=== PATIENT | male | born 1955 | race Caucasian/White ===

== ENCOUNTER 2020-12-19 11:23 | Emergency (ER) | payer BC, SELFPAY ==
[2020-12-19] VITALS (27 sets, daily range): BP systolic 132–165; BP diastolic 72–88; PULSE 86–148; RESP 13–33; TEMP 36.6; O2SAT 82–99
--- NOTE | ~2020-12-19 | XR_ITS ---
EXAMINATION: XR chest 2V DATE: 12/19/2020 12:03 INDICATION: Seizure TECHNIQUE: frontal and lateral views of the chest were obtained. COMPARISON: Chest radiograph dated 12/17/2014 FINDINGS: Unchanged small calcified nodule in the right midlung zone consistent with old granulomatous disease. No other airspace opacities, pulmonary edema, pleural effusion or pneumothorax. The cardiomediastina l silhouette is normal. Mild thoracic levocurvature with moderate spondylosis. Chronic minimal to mil d anterior wedging of a fusiform lower thoracic vertebral bodies, likely T9-T11. IMPRESSION: 1. No acute cardiopulmonary disease. Reviewed, dictated and finalized at location A.
--- NOTE | ~2020-12-19 | CT_ITS ---
EXAMINATION: CT brain wo con DATE: 12/19/2020 12:14 INDICATION: Seizure and confusion TECHNIQUE: Computed tomography (CT) of the head was performed without intravenous contrast. Sagittal and coronal reconstructions were performed. The mA was adjusted according to patient size. Iterative reconstruction technique was employed. The dose-length product was 605.33 mGy-cm. COMPARISON: None FINDINGS: There is approximately 12 x 4 mm region of increased attenuation at the periphery of what appears to be an intra-axial mass suspicious for malignancy in the right frontal lobe with small amount of surro unding vasogenic edema. There is local mass effect with effacement of the adjacent sulci but without midline shift, asymmetry to the normal size ventricles or effacement of the basal cisterns. No acute infarction or abnormal extra axial fluid collection. The orbits, paranasal sinuses and mastoid air ce lls are normal. IMPRESSION: 1. Small relatively linear region of increased attenuation along side but appears be a large extra-ax ial mass in the right frontal lobe. The former is suspicious for either intraparenchymal or subarachn oid hemorrhage along a vessel although differential includes calcification. With the patient still on the CT table the emergency department was notified of this finding and recommendation to obtain olga tional postcontrast imaging for further assessment of the mass. See separate contrast enhanced CT rep ort for additional detail. Reviewed, dictated and finalized at location A. IMPRESSION: 1. Small relatively linear region of increased attenuation along side but appea rs be a large extra-axial mass in the right frontal lobe. The former is suspici ous for either intraparenchymal or subarachnoid hemorrhage along a vessel altho ugh differential includes calcification. With the patient still on the CT table the emergency department was notified of this finding and recommendation to ob tain additional postcontrast imaging for further assessment of the mass. See [facility] contrast enhanced CT report for additional detail.
--- NOTE | ~2020-12-19 | CT_ITS ---
EXAMINATION: CT brain w con DATE: 12/19/2020 12:37 INDICATION: Seizure and right frontal lobe mass lesion on noncontrast imaging TECHNIQUE: Computed tomography (CT) of the head was performed with 100 mL Omnipaque-350 intravenous c ontrast. Sagittal and coronal reconstructions were performed. The mA was adjusted according to patien t size. Iterative reconstruction technique was employed. The dose-length product was 605.33 mGy-cm. COMPARISON: head CT dated 12/19/20 at 12:07 PM FINDINGS: There is avid enhancement throughout a type 5.3 x 3.4 x 3.6 cm intra-axial mass within the right fron suraj lobe with small amount of surrounding vasogenic edema. Again seen are a few foci of higher attenu ation along a linear pattern at the periphery of the mass which could represent calcification or intr aparenchymal or subarachnoid hemorrhage. No other abnormally enhancing brain lesions identified. IMPRESSION: 1. 5.3 x 3.4 x 3.6 cm right frontal lobe intra-axial mass which could represent either primary brain cancer or metastatic disease. Neurosurgical consultation is indicated particularly given the presence of possible small amount of hemorrhage along the margin of the mass as detailed on prior noncontrast imaging. Discussed with Dr. Molina at 12:35 PM Reviewed, dictated and finalized at location A. IMPRESSION: 1. 5.3 x 3.4 x 3.6 cm right frontal lobe intra-axial mass which could represent either primary brain cancer or metastatic disease. Neurosurgical consultation is indicated particularly given the presence of possible small amount of hemorr isaiah along the margin of the mass as detailed on prior noncontrast imaging. Dis cussed with Dr. Molina at 12:35 PM
--- NOTE | 2020-12-19 11:34 | ECG_ITS ---
Measurements Intervals [place] Rate: 146 P: 224 [place]: 77 QRS: 51 QRSD: 90 T: 55 QT: 312 QTc: 487 Interpretive Statements SINUS TACHYCARDIA BASELINE ARTIFACT- II, III, AVR, AVF, V3-V6 ABNORMAL ECG Electronically Signed On 12-19-2020 17:15:28 CDT by Jose Elias Herrmann D.O.
[2020-12-19] MEDS: SODIUM CHLORIDE 0.9% IV 1,000 ML 999 ML IV CONT (12:03)
[2020-12-19 12:40] LABS: Estimated CRCL calculation 67 ml/min; Estimated Glomerular Filt Rate > 60
[2020-12-19 13:00] LABS: Basophils Percent Auto 0.4 % (0.2-1.2); Eosinophils Absolute Auto 0.3 K/mm3 (0-0.3); Eosinophils Percent Auto 2.8 % (0-4.4); Hematocrit 53.5 % (42.0-52.0); Hemoglobin 17.4 g/dL (14.0-18.0); Immature Granulocyte Absolute 0.05 K/mm3 (0.00-0.031); Immature Granulocyte Percent A 0.6 % (0-0.5); Lymphocytes Absolute Auto 3.49 K/mm3 (0.9-3.2); Mean Corpuscular HGB Conc 32.5 g/dl (32-36); Mean Corpuscular Hemoglobin 31.6 pg (26-34); Mean Corpuscular Volume 97.3 fl (80-100); Mean Platelet Volume 11.1 fl (7.4-10.4); Monocytes Absolute Auto 0.8 K/mm3 (0.1-0.6); Monocytes Percent Auto 8.4 % (2.6-8.5); Neutrophils Absolute Auto 4.4 K/mm3 (1.3-6.7); Neutrophils Percent Auto 48.8 % (45.5-73.1); Platelet Count Result 205 k/mm3 (150-375); Red Cell Distribution Width 12.8 % (11.5-14.5)
[2020-12-19] MEDS: levETIRAcetam 1000MG/NACL100ML 1,000 MG/100 ML BAG 400 MG (13:01)
[2020-12-19 13:05] LABS: Ethanol < 10 mg/dL (<10)
[2020-12-19 13:15] LABS: Alanine Aminotransferase 37 U/L (4-50); Albumin Level 5.2 g/dL (3.5-5.1); Alkaline Phosphatase 62 U/L (38-126); Anion Gap 27 mmol/L (8-16); Aspartate Amino Transferase 36 U/L (17-59); Bilirubin,Total 1.3 mg/dL (0.2-1.3); Blood Urea Nitrogen 17 mg/dL (9-20); Calcium 9.7 mg/dL (8.4-10.2); Carbon Dioxide 10 mmol/L (22-30); Chloride 103 mmol/L (98-107); Estimated CRCL calculation 62 ml/min; Estimated Glomerular Filt Rate > 60; Glucose 184 mg/dL (65-110); Potassium 3.9 mmol/L (3.4-5.0); Sodium 140 mmol/L (137-145)
[2020-12-19 13:16] LABS: Add Urine Microscopic? YES; Appearance Urine Clear (Clear); Bilirubin Urine Negative (Negative); Blood Urine 1+ (Negative); Color Urine Yellow (Yellow); Glucose Urine UA Negative (Negative); Ketones Urine Trace mg/dL (Negative); Leukocyte Esterase Ur Negative LEU/UL (Negative); Mucus Urine Rare /lpf; Nitrate Urine Negative (Negative); Protein Urine 2+ mg/dL (Negative); RBC Urine 0-2 /hpf (0-2); Specific Grav Ur 1.024 (1.001-1.035); Squamous Epithelial Cell Urine Rare /hpf (Few); Urobilinogen Urine Negative mg/dL (<2.0); WBC Urine 0-3 /hpf
[2020-12-19 13:26] LABS: Amphetamine Screen Urine Negative (Negative); Barbiturate Screen Urine Negative (Negative); Benzodiazepines Screen Urine Negative (Negative); Cannabinoid Screen Urine Negative (Negative); Cocaine Screen Urine Negative (Negative); Methadone Screen Urine Negative (Negative); Opiate Screen Urine Negative (Negative); Phencyclidine Screen Urine Negative (Negative)
--- NOTE | 2020-12-19 13:57 | ED.SEIZURE ---
HPI - Seizure General Chief Complaint: Seizure Stated Complaint: seizure Time Seen by Provider: 12/19/20 11:27 History of Present Illness HPI Narrative: Patient is a 65-year-old male who presents ER status post seizure. 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 Then moved to the right side as well. 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 Patient was postictal upon arrival of EMS. Upon arrival at the ER patient is alert and oriented x3. No tongue biting or loss of bladder. No previous history of seizures. Patient reports having some whiskey last night and he does drink alcohol regularly. Denies any history of alcohol withdrawal. Denies any numbness or tingling to an arm or leg. No weakness or slurred speech. No history of stroke. He is on any blood thinners. Related Data Allergies Allergy/AdvReac Type Severity Reaction Status Date / Time Penicillins Allergy Unknown Hives / Verified 12/19/20 11:29 Red Face Review of Systems Review of Systems: All systems reviewed & are unremarkable except as noted in HPI and below Constitutional: Constitutional: Denies chills, Denies fever(s) and Denies weakness ENT: Denies nasal congestion and Denies sore throat Cardiovascular: Cardiovascular: Denies chest pain, Denies rapid heart rate and Denies radiating jaw, neck or arm pain Respiratory: Respiratory: Denies cough and Denies dyspnea Neurologic: Denies headache(s), Denies focal weakness and Denies numbness Comments: +seizure PMFSH Past Medical History Medical History (Updated 12/19/20 @ 18:42 by Riky Molina MD) Healthy adult male Surgical History Surgical History (Updated 12/19/20 @ 13:59 by Riky Molina MD) H/O knee surgery Social History Social History (Updated 12/19/20 @ 14:00 by Riky Molina MD) Tobacco type: cigars Additional smoking assessment comments: [place] cigars on the golf [place] occasion. Alcohol intake: current Substance use: never Exam Narrative: GENERAL: Well-appearing, well-nourished, and in no acute distress. HEAD: Normocephalic, atraumatic. EYES: PERRL and EOMI. ENT: Mucous membranes moist. CHEST: Clear to auscultation. No respiratory distress. HEART: Regular rate and rhythm. Normal peripheral pulses. ABDOMEN: Soft, nontender, nondistended. EXTREMITIES: Normal range of motion. No edema. SKIN: Warm, dry, no rash. NEURO: No focal deficits. No upper or lower extremity drift. Normal fckk-qk-wtpo testing. No facial droop or asymmetry. Clear speech. Alert and oriented x3. Course Course Emergency Course: Patient resting comfortably and informed results. He has been given Keppra 1 g IV for seizure prophylaxis and will be placed on scheduled Keppra. I discussed the case with Dr. Alfaro the neurosurgery fellow who is on-call. He is excepted the patient for admission to the neuro stepdown unit. The accepting physician will be Dr. Mcallister. Vital Signs Vital signs: Vital Signs Pulse Rate 148 H 12/19/20 11:21 Respiratory Rate 30 H 12/19/20 11:21 Blood Pressure 165/82 H 12/19/20 11:21 Pulse Oximetry 94 12/19/20 11:21 Temperature 97.8 F 12/19/20 18:58 Pulse Rate 99 12/19/20 18:58 Respiratory Rate 18 12/19/20 18:58 Blood Pressure 136/72 12/19/20 18:58 Pulse Oximetry 98 12/19/20 18:58 MDM - Seizure Lab Data Result diagrams: 12/19/20 11:30 12/19/20 12:29 Labs: Lab Results 12/19/20 12/19/20 12/19/20 Range/Units 11:30 11:30 11:30 WBC 9.0 (4.5-10.0) K/mm3 RBC 5.50 (4.6-6.20) M/mm3 Hgb 17.4 (14.0-18.0) g/dL Hct 53.5 H (42.0-52.0) % MCV 97.3 (80-100) fl MCH 31.6 (26-34) pg MCHC 32.5 (32-36) g/dl RDW 12.8 (11.5-14.5) % Plt Count 205 (150-375) k/mm3 MPV 11.1 H (7.4-10.4) fl Immature Gran % (Auto) 0.6 H (0-0.5) % Neut % (Auto) 48.8 (45.5-73.1) % Lymph % (Auto) 39.0
--- NOTE | 2020-12-19 16:40 | PC.NURSE ---
pt reports that bystanders preformed CPR on scene. pt noted to have bruising and abrasions to right side of back.
--- NOTE | 2020-12-19 18:55 | PC.NURSE ---
[facility] accepted transfer to [facility] 1929 trip # [id number]
== END 2020-12-19 19:25 | disposition short-term general hospital (02) ==
PROVIDERS: Emergency Provider Emergency Medicine; PCP Internal Medicine
DX: R56.9 Unspecified convulsions (principal); I62.9 Nontraumatic intracranial hemorrhage, unspecified; G93.89 Other specified disorders of brain; F17.290 Nicotine dependence, other tobacco product, uncomplicated; R00.0 Tachycardia, unspecified
CPT/HCPCS: 70450; 70460; 70470; 71046; 80053; 80307; 81001; 85025; 93005; 96361; 96374; 99291; J1953; J7030; Q9967

== ENCOUNTER → 2021-11-01 14:05 | Outpatient (CLI) | payer BC, SELFPAY ==
--- NOTE | ~2021-11-01 | CT_ITS ---
EXAMINATION: CT femur RT wo con DATE: 11/01/2021 14:25 INDICATION: Abnormality of the femur TECHNIQUE: High resolution computed tomography (CT) of the right femur from the hip through the knee was performed without intravenous contrast. Additional sagittal and coronal reconstructions were perf ormed. Automated exposure control and iterative reconstruction technique were employed. The dose-carmen th product was 479.17 mGy-cm. COMPARISON: None FINDINGS: Bone alignment is normal. No fracture. Mild streak artifact at the distal femur resulting from a left sided total knee arthroplasty partially visualized on the informal waiter/waitress topogram. There is a 1.7 x 1.3 x 0.9 cm lytic lesion is centrally positioned at the lateral aspect of the distal metaphyseal region of th e right femur. The lesion contains a a 9 x 7 x 9 mm sclerotic focus with ring and arc-like pattern co nsistent with chondroid matrix in an enchondroma. No evident scalloping of the cortex along side the lytic lesion or evident periosteal reaction. Small sclerotic bone island at the right lesser trochant er. No other bone lesions identified. Marginal osteophytes in all 3 compartments of the right knee co nsistent with at least mild osteoarthritis although the degree of joint space narrowing can be undere stimated on nonweightbearing imaging. Small enthesophytes along the proximal pole of the patella. Mil d right hip osteoarthritis with posterior predominant nonuniform joint space narrowing. Soft tissues are unremarkable. No right hip or knee joint effusion. IMPRESSION: 1. 1.7 x 1.3 x 0.9 cm enchondroma the distal right femoral metaphysis. Reviewed, dictated and finalized at location A.
== END ==
PROVIDERS: PCP Internal Medicine; Visit Provider Internal Medicine
DX: Q74.2 Other congenital malformations of lower limb(s), including pelvic girdle (principal)
CPT/HCPCS: 73700

== ENCOUNTER 2025-01-18 20:15 | Emergency (ER) | payer MEDICARE, SELFPAY ==
--- OUTSIDE RECORDS SUMMARY | 2021-03-22 07:00 | XMS_ITS | Continuity of Care Document ---
Author Organization [facility] Address [address] [place] [address] [address] [place] [address] Phone Care Team Providers Care Clinical Social Worker Name Role Phone Dawn PT, Chari Unavailable Unavailabl e Procedures Procedure Date Therapeutic Activities Hot or Cold Pack Therapeutic Exercise Therapeutic Activities Therapeutic Exercise Hot or Cold Pack Hot or Cold Pack Therapeutic Activities Therapeutic Exercise Hot or Cold Pack Therapeutic Exercise Therapeutic Activities Therapeutic Activities Neuromuscular Re-Ed Therapeutic Exercise PT Evaluation Moderate Complexity Therapeutic Activities Therapeutic Exercise Neuromuscular Re-Ed Manual Therapy Therapeutic Exercise Neuromuscular Re-Ed Manual Therapy Therapeutic Exercise Neuromuscular Re-Ed Manual Therapy Therapeutic Exercise Neuromuscular Re-Ed Manual Therapy Therapeutic Exercise Neuromuscular Re-Ed Manual Therapy Therapeutic Exercise Neuromuscular Re-Ed Manual Therapy PT Evaluation Low Complexity Therapeutic Exercise Manual Therapy Therapeutic Exercise Therapeutic Activities Manual Therapy Therapeutic Exercise Therapeutic Activities Manual Therapy Electrical Stimulation Therapeutic Exercise Therapeutic Activities Manual Therapy Electrical Stimulation Therapeutic Exercise Therapeutic Activities Manual Therapy Electrical Stimulation Therapeutic Exercise Therapeutic Activities Manual Therapy Electrical Stimulation Therapeutic Exercise Therapeutic Activities Manual Therapy Electrical Stimulation Progress Note Therapeutic Exercise Therapeutic Activities Manual Therapy Electrical Stimulation Therapeutic Exercise Therapeutic Activities Manual Therapy Electrical Stimulation Therapeutic Exercise Therapeutic Activities Manual Therapy Electrical Stimulation Therapeutic Exercise Therapeutic Activities Manual Therapy Electrical Stimulation Therapeutic Exercise Therapeutic Activities Manual Therapy Electrical Stimulation Therapeutic Exercise Therapeutic Activities Manual Therapy Electrical Stimulation Therapeutic Exercise Therapeutic Activities Manual Therapy Electrical Stimulation PT Evaluation Moderate Complexity Therapeutic Exercise Therapeutic Activities Advance Directives Directive Yes / No Effective Date File Name No Information Encounters Encounter Description Practice Location Reason(s) For Visit Diagnoses Date Provider Providers Copied on Encounter [facility], [address] [facility] [address], [place], [place], [id number], [place] tel:[phone] [place] No Information 1 Niederhoffer Chari. . Referring Provider: Carlos Prater, [address] [place], [address]. tel:[phone] [place] [address], [id number], [place] tel:[phone] [place] No Information Dec-0 1 Niederhoffer Chari. . Referring Provider: Carlos Prater, [address] [place], [address]. tel:[phone] [place], [place] [address] [address], [id number], [place] tel:[phone] [place] No Information Dec-0 1 Niederhoffer Chari. . Referring Provider: Carlos Prater, [address] [place], [address]. tel:[phone] [place] [address], [id number], [place] tel:[phone] [place] No Information 1 Niederhoffer Chari. . Referring Provider: Carlos Prater, [address] [place], [address]. tel:[phone] [place] [address], [id number], [place] tel:[phone] [place] No Information 1 Niederhoffer Chari. . Referring Provider: Carlos Prater, [address] [place], [address]. tel:[phone] [facility] [address], [id number], [place] tel:[phone] [place] No Information 1 Niederhoffer Chari. . Referring Provider: Carlos Prater, [address] [place], [address]. tel:[phone] [facility], [id number], [place] tel:[phone] [place] Pain in left shoulderPrima ry osteoarthriti s, left shoulder May-2 9-201 8 Bill Guzman. [address] [facility], [address], [place], [facility], . tel:[phone] Referring Provider: [place], [address]. tel:[phone] [place], [place] [id number] [facility] [address] [place] [address], [id number], [place] tel:[phone] [place] Pain in left shoulderPrima ry osteoarthriti s, left shoulder May-2 1-201 8 [place], [place], [place]. Referring Provider: [place], [address]. tel:[phone] [place] [address] [address], [id number], [place] tel:[phone] [place] Pain in left shoulderPrima ry osteoarthriti s, left shoulder May-1 5-201 8 [place], [place]. Referring Provider: [place], [address]. tel:[phone] [facility], [id number], [place] tel:[phone] [place] Pain in left shoulderPrima ry osteoarthriti s, left shoulder May-0 9-201 8 Basilio [place]. , [place], [place]. Referring Provider: [place], [address]. tel:[phone] [facility], [id number], [place] tel:[phone] [place] Pain in left shoulderPrima ry osteoarthriti s, left shoulder May-0 7-201 8 Bas[place]. , [place], [place]. Referring Provider: [place], [address]. tel:[phone] [facility], [place], [place], [id number], [place] tel:[phone] [place] Pain in left shoulderPrima ry osteoarthriti s, left shoulder May-0 8 [place] , [place], [place]. Referring Provider: Carlos Prater, [address] [place], [address]. tel:[phone] [facility], [place], [place], [id number], [place] tel:[phone] [place] Pain in left shoulderPrima ry osteoarthriti s, left shoulder Jul-2 8 [place] , [place], [place]. Referring Provider: Carlos Prater, [address] [place], [address]. tel:[phone] [facility], [place], [place], [id number], [place] tel:[phone] [place] No Information [address] [place] , [place], [place]. [facility], [place], [place], [id number], [place] tel:[phone] [place] No Information [address] [place] , [place], [place]. [facility], [place], [place], [id number], [place] tel:[phone] [place] No Information [address] [place] , [place], [place]. [facility], [place], [place], [id number], [place] tel:[phone] [place] No Information [address] [place] , [place], [place]. [facility], [place], [place], [id number], [place] tel:[phone] [place] No Information [address] [place] , [place], [place]. [facility], [address], [place], [place], [id number], [place] tel:[phone] [place] No Information - 7 [place] , [place], [place]. [facility], [address], [place], [place], [id number], [place] tel:[phone] [place] No Information - [address] [place] , [place], [place]. [facility], [address], [place], [place], [id number], [place] tel:[phone] [place] No Information - [address] [place] , [place], [place]. [facility], [address], [place], [place], [id number], [place] tel:[phone] [place] No Information 0 [address] [place] , [place]. [facility], [address], [place], [place], [id number], [place] tel:[phone] [place] No Information 0 - 7 [place] , [place], [place]. [facility], [address], [place], [place], [id number], [place] tel:[phone] [place] No Information - [address] [place] , [place], [place]. [facility], [place], [place], [id number], [place] tel:[phone] [place] No Information 0 - 7 [place] , [place], [place]. [facility], [address], [place], [place], [id number], [place] tel:[phone] [place] No Information 3 0- 7 [place] , [place], [place]. [facility], [place], [place], [id number], [place] tel:[phone] [place] Presence of left artificial knee jointPain in left kneeStiffness of right knee, not elsewhere classifiedOth symptoms and signs involving the musculoskelet al system 7 Basilio Richardson , [place], [place]. Family History Family Member Type Diagnosis Age At Onset No Information Payers Payer name Insurance type Covered alliance party ID Authoriza tiradha(s) [facility] [id number] Social History Type Description Quantity Date Captured Comments Sex Male Smoking Status No Information Chief Complaint And Reason For Visit No Information Reason For Referral Reason For Referral No Information History Of Present Illness Encounter Date Complaint History Of Prese nt Illness No Information Functional Status Date Functional Assessmen t No Information Instructions Date Instruction Additional Infor mation Giving encouragement to exercise Related to Overweight Giving encouragement to exercise Related to Overweight Assessments Type Assessment Date No Information Patient Care Teams Name Effective Dates (start - stop) Status Members No Information
--- OUTSIDE RECORDS SUMMARY | 2021-04-02 17:28 | XMS_ITS | Encounter Summary ---
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
--- NOTE | ~2025-01-18 | CT_ITS ---
CT HEAD NON-CONTRAST CT C-SPINE CT MAXILLOFACIAL Clinical History: FALL, HX BRAIN TUMOR Comparison: CT brain 12/19/2020 Technique: Unenhanced axial images skull base to vertex. Coronal, sagittal reformats. Axial images thoracic inlet to skull base. Sagittal and coronal reformats. CT images acquired with automatic exposure control for dose reduction DLP: 605 mGy-cm Findings: Head: Right frontal craniectomy with reconstruction. Underlying right frontal lobe encephalomalacia. Sulci, ventricles: Unremarkable. No intracerebral hemorrhage. No evidence acute territorial infarct. No mass effect, midline shift, intra-/extra-axial fluid collection. Visualized paranasal sinuses: Clear. Mastoid air cells: Clear. C-spine: No acute fracture or listhesis. Vertebral bodies normal height and alignment. Moderate degenerative changes. Disc spaces maintained. Prevertebral soft tissues within normal limits. Visualized lung apices: Clear. Visualized thyroid: Unremarkable. No enlarged cervical nodes. CT face: No fractures. IMPRESSION: HEAD: 1. No acute intracranial findings. C-SPINE: 1. No acute fracture. CT FACE: 1. No fracture. Reviewed, dictated and finalized at location R. IMPRESSION: HEAD: 1. No acute intracranial findings. C-SPINE: 1. No acute fracture. CT FACE: 1. No fracture.
--- NOTE | ~2025-01-18 | XR_ITS ---
Examination: XR shoulder RT min 2V Clinical History: FALL Comparison: None Technique: 3 views right shoulder Findings/impression: 1. No fracture or dislocation right shoulder. 2. Severe glenohumeral joint degenerative changes with [id number] contact and flattening of humeral head. Reviewed, dictated and finalized at location R.
--- OUTSIDE RECORDS SUMMARY | 2025-01-18 20:17 | XMS_ITS | Clinical Summary ---
Author Organization [facility] Address [address] [place] [address] Care Team Providers Care Remnants Cutter Name Role Phone Carlos Prater MD Primary Care Provider [phone] Source Comments [facility],non-owned Affiliates and Associated Physician Practices is amultiple site organization consisting of ambulatory clinics and hospital sitesin [place], [place] and [place]. This disclosure is being madepursuant to the Care Everywhere program and may not contain all information available regarding this patient. 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 Gender Identity Not on file Sexual Orientation Not on file Plan of Treatment Health Maintenance Due Date Last Done Comments COLOGUARD (AGES 45-75) - COLON CA SCREENING 1957 COLON MONITORING 1957 COLONOSCOPY - COLON CA SCREENING 1957 CT COLONOGRAPHY - COLON CA SCREENING 1957 Colorectal Cancer Screening 1957 FIT - COLON CA SCREENING 1957 FLEX SIG - COLON CA SCREENING 1957 LIPID TESTING 1957 HEPATITIS C SCREENING 05/20/1975 DTAP/TDAP/TD VACCINES (1 - Tdap) 1976 PNEUMOCOCCAL VACCINE 50+ (1 of 1 - PCV) 2007 ZOSTER VACCINE (1 of 2) 2007 DEPRESSION SCREENING 04/17/2024 COVID-19 VACCINE ( season) 2024 INFLUENZA VACCINE (#1) 2024 , 02/19/2021, 01/31/2019, Additional history exists Respiratory Syncytial Virus (RSV) Vaccine Pt: or over 60 yrs (1 - 1-dose 75+ series) 2032 HEPATITIS B VACCINE Aged Out No longe r eligible based on patient's age to complete this topic HIB VACCINE Aged Out No longer eligi ble based on patient's age to complete this topic HPV VACCINE Aged Out No longer eligi ble based on patient's age to complete this topic MENINGOCOCCAL (Group B) VACCINE SHARED DECISION-MAKING Aged Out No longer eligible based on patient's age to complete this topic MENINGOCOCCAL GROUPS A/C/Y/W VACCINE Aged Out No longer eligible based on patient's age to complete this topic Insurance ANTH Advance Directives * Full Code (Latest Code Status on File) Date Activated Date Inactivated Comments 04/03/2021 5:28 PM 04/24/2021 12:06 PM Care Teams Remnants Cutter Relationship Specialty Start Date End Date Carlos Prater MD [address] [place] [address] PCP - General Internal Medicine 04/03/21
--- OUTSIDE RECORDS SUMMARY | 2025-01-18 20:17 | XMS_ITS | Clinical Summary ---
Author Organization [facility] Address [address] [place] [address] Care Team Providers Care Combat Systems Operator Name Role Phone Carlos Prater MD Primary Care Provider [phone] Allergies Active Allergy Reactions Criticality Noted Date Comments Penicillins Hives 07/10/2012 Medications No known medications Active Problems Problem Noted Date Diagnosed Date Meningioma 04/03/2021 Social History Tobacco Use Types Packs/Day Years Used Date Smoking Tobacco: Never Smokeless Tobacco: Never Alcohol Use Standard Drinks/Week Comments Not Currently 0 (1 standard drink = 0.6 oz pur e alcohol) Sex and Gender Information Value Date Recorded Sex Assigned at Not on file Legal Sex Male 5:32 PM EST Gender Identity Not on file Sexual Orientation Not on file Last Filed Vital Signs Vital Sign Reading Time Taken Comments Blood Pressure 149/97 04/24/2021 8:41 AM RN POSTPARTUM Pulse 85 04/24/2021 8:41 AM RN POSTPARTUM Temperature 36.5 C (97.7 F) 04/24/2021 8:41 AM RN POSTPARTUM Respiratory Rate 18 04/24/2021 8:41 AM RN POSTPARTUM Oxygen Saturation 97% 04/24/2021 8:41 AM RN POSTPARTUM Inhaled Oxygen Concentration - - Weight 87.5 kg (193 lb) 04/11/2021 10:00 AM RN POSTPARTUM Height 175.3 cm (5' 9) 04/03/2021 6:18 PM RN POSTPARTUM Body Mass Index 28.5 04/03/2021 6:18 PM RN POSTPARTUM Plan of Treatment Health Maintenance Due Date Last Done Comments CT Colonography 1957 Colonoscopy 1957 Colorectal Cancer Screening 1957 FIT-DNA (Cologuard) 1957 FIT 1957 FOBT 1957 Sigmoidoscopy 1957 Annual Visit Topic 1958 MMR Vaccines (1 of 1 - Stand eugenio series) 1958 Hepatitis C Screening 1975 DTaP/Tdap/Td Vaccines (1 - Tdap) 1976 Pneumococcal Vaccine: 65+ Ye ars (1 of 2 - PCV) 2007 PSA Test 2012 HIB Vaccines Aged Out No longer eligi ble based on patient's age to complete this topic HPV Vaccines Aged Out No longer eligi ble based on patient's age to complete this topic Hepatitis A Vaccines Aged Out No long er eligible based on patient's age to complete this topic Hepatitis B Vaccines Aged Out No long er eligible based on patient's age to complete this topic IPV Vaccines Aged Out No longer eligi ble based on patient's age to complete this topic Meningococcal Vaccine Aged Out No william cecilia eligible based on patient's age to complete this topic Advance Directives * Full Resuscitation (Latest Code Status on File) Date Activated Date Inactivated Comments 04/03/2021 6:49 PM 04/24/2021 3:15 PM Care Teams Combat Systems Operator Relationship Specialty Start Date End Date Carlos Prater MD [address] [place] [address] PCP - General Internal Medicine 04/05/21
--- OUTSIDE RECORDS SUMMARY | 2025-01-18 20:17 | XMS_ITS | Clinical Summary ---
Author Organization [facility] Address [address] [place] [address] Care Team Providers Care Interior Mechanic Name Role Phone Carlos Prater MD Primary Care Provider [phone] Allergies Active Allergy Reactions Criticality Noted Date Comments Penicillins Hives,Redness 07/10/2012 Medications amLODIPine Besy-Benazepril HCl 5-40 MG CapIndications:Brien gn essential hypertension TAKE ONE CAPSULE BY MOUTH ONCE DAILY 90 capsule 3 5 Active azithromycin (ZITHROMAX Z-WADE) 250 MG tabletIndications:U pper respiratory tract infection, unspecified type Take 2 tablets by mouth on day one then 1 daily for four days. 6 tablet 5 Active celecoxib (CELEBREX) 200 MG capsuleIndications: Primary osteoarthritis of both shoulders TAKE ONE CAPSULE (200MG) BY MOUTH TWICE DAILY 180 capsule 3 5 Active Active Problems Problem Noted Date Diagnosed Date Left hemiparesis ([facility] HHS/HCC) 05/15/2021 Status post craniectomy 05/05/2021 Brain abscess ([facility]) 04/22/2021 Overview (05/15/2021): Last Assessment & Plan: - Continue vancomycin IV until CT scan scheduled for 05/03/21, has follow-up with neurosurgery on 05/04/21 given location of infection. - Pt was initially on CTX 2g q 12, however d/c due to worsening leukopenia, was transitioned to Vancomycin for ongoing treatment of R craniotomy surgical site infection, s/p craniotomy, washout, removal of hardware, Cx + Cutibacterium acnes. - Pt and ok with plan, will await results of repeat imaging. - Discussed with patient the rational for treatment, culture results, risk of recurrent infection, signs/symptoms of recurrent infection, and to contact ID clinic with any questions or concerns. - Vancomycin can cause renal impairment, neutropenia, eosinophilia, DRESS, ototoxicity, and thrombocytopenia. Due to the side effects, CBC and BMP should be monitored weekly while on vancomycin. Meningioma ([facility]) 01/18/2021 Precordial pain 10/13/2020 Hypercholesterolemia 08/19/2020 Hyperglycemia 08/19/2020 Obesity (BMI 30.0-34.9) 08/19/2020 Diarrhea 11/09/2017 Osteoarthritis of shoulder 07/28/2017 Left shoulder pain 07/27/2017 Low back pain 12/09/2015 Infection due to fungus 07/09/2014 Costochondritis 06/17/2014 Neck pain 04/29/2014 Cough 03/26/2013 Tendonitis 03/01/2013 Urticaria 07/25/2012 Benign essential hypertension 05/11/2012 Resolved Problems Problem Noted Date Diagnosed Date Resolved Date Clostridium difficile infection 06/10/2021 03/06/2024 Surgical site infection 04/22/202102/16 Chest tightness or pressure 04/28/2017 12/11/2019 Upper respiratory infection 12/08/2014 12/11/2019 Coughing up blood 04/25/2013 12/11/2019 Encounters Date Type Department Care Team Description 01/14/2025 Telephone [facility] Family & Internal [address] [phone] Kezia Goldsmith CMA Other ([employer]) 01/06/2025 Telephone [facility] Internal [address] [phone] Carlos Prater MD Referral 11/19/2024 Telephone [facility] Internal [address] [phone] Carlos Prater MD Surgical Clearance (Dr. Prasad - Cataract extraction) from Last 3 Months Immunizations Immunization Administration Dates Next Due Fluzone 6 Months+ Quad (0.5 mL Prefilled Syringe) 03/23/2022,02/24/2021,01/31/2019 Fluzone High Dose - >Age 65 (Prefilled Syringe) 01/26/2023 Influenza Adult (Generic) 01/30/2018,01/17/2017 PFIZER COVID-19 BIVALENT (12 +) mRNA, LNP-S, PF, 30 MCG/0.3 ML DOSE 03/23/2022 Pneumococcal (Prevnar 20) 02/15/2023 Tdap (Generic) 10/05/2017,10/04/2012 Family History Medical History Relation Comments Diabetes Father Heart Disease Father Heart Disease Mother Relation Status Comments Brother Alive Father (Age 87) Mother Alive Sister Alive Social History Tobacco Use Types Packs/Day Years Used Date Smoking Tobacco: Former Cigars Smokeless Tobacco: Never Tobacco Cessation:Counseling Given: Yes Comments:Occasional cigar Alcohol Use Standard Drinks/Week Comments Yes 13.3 (1 standard drink = 0.6 oz pure alcohol) 1-2 glass of bourbon daily AUDIT-C Answer Date Recorded Frequency of Alcohol Consumption 4 or more times a week 01/16/2019 Average Number of Drinks Not on file 019 Frequency of Binge Drinking Not on file 05/2018 PHQ-2 Answer Date Recorded Patient Health Questionnaire-2 Score 0 10/08/2024 Sex and Gender Information Value Date Recorded Sex Assigned at Male 10/08/2024 1:15 PM CDT Legal Sex Male 7:55 PM CDT Gender Identity Not on file Sexual Orientation Not on file Last Filed Vital Signs Vital Sign Reading Time Taken Comments Blood Pressure 124/70 10/08/2024 1:15 PM CDT Pulse 72 10/08/2024 1:15 PM CDT Temperature 36.9 C (98.4 F) 10/08/2024 1:15 PM CDT Respiratory Rate 20 10/08/2024 1:15 PM CDT Oxygen Saturation 96% 10/08/2024 1:15 PM CDT Inhaled Oxygen Concentration - - Weight 87.8 kg (193 lb 8 oz) 10/08/2024 1:15 PM CDT Height 177.8 cm (5' 10) 10/08/2024 1:15 PM CDT Body Mass Index 27.76 10/08/2024 1:15 PM CDT Plan of Treatment Health Maintenance Due Date Last Done Comments Colorectal Cancer Screening Colonoscopy (10 Years) 1957 Hepatitis C 1975 Zoster Vaccines (1 of 2) 2007 Annual Medicare Wellness Visit 2022 COVID-19 Vaccine ( season) 2024 02/08/2024, 02/15/2023, 03/23/2022, Additional history exists Influenza Adult (#1) 2025 02/08/2024, 01/26/2023, 03/23/2022, Additional history exists DTaP, Tdap and Td Vaccines (3 - Td or Tdap) 10/06/2027 10/05/2017, 10/04/2012 RSV Immunization or 60+ Years (1 - 1-dose 75+ series) 2032 Colorectal Cancer Screening FIT-DNA (3 Years) Discontinued 08/20/2018, 08/20/2018 AAA SCREENING Completed 12/20/2020, 12/20/2020 Pneumococcal Vaccine: 50+ Years Completed 02/15/2023 PHQ-2 (Physician [place]) Completed 10/08/2024 Meningococcal B Vaccine Aged Out No l onger eligible based on patient's age to complete this topic Meningococcal Vaccine Aged Out No william cecilia eligible based on patient's age to complete this topic RSV Immunizations Under 20 Months Aged Out No longer eligible based on patient's age to complete this topic Procedures Procedure Name Priority Date/Time Associated Diagnosis Comments COLOGUARD (SCAN ORDER) Routine 08/20/2018 from Last 3 Months or Most Recently Relevant to Health Maintenance Results * COLOGUARD (SCAN) (08/20/2018) Stool specimen (specimen) us Documents Scanned SCANNING Final Result [facility] [address] [address] from Last 3 Months or Most Recently Relevant to Health Maintenance Insurance [employer] MED[employer]ARE Care Teams Interior Mechanic Relationship Specialty Start Date End Date Carlos Prater MD [address] [place] [address] PCP - General 04/29/14
--- OUTSIDE RECORDS SUMMARY | 2025-01-18 20:17 | XMS_ITS | Encounter Summary ---
Author Organization [facility] Address [facility] [place] [address] Care Team Providers Care Risk Management Director Name Role Phone Carlos Prater MD Primary Care Provider [phone] Encounter Details Date Type Department Care Team (Latest Contact Info) Description 02/20/2018 Abstract [facility] , Mercedes Pizano MD Social History Tobacco Use Types Packs/Day Years [...] Diagnoses Not on filedocumented in this encounter Additional Health Concerns Infection Onset Date Last Indicated Resolved Time COVID-19 Rule Out 02/02/2022 02/02/2022 02/02/2022 11:23 AM CDT COVID-19 Rule Out 07/01/2022 07/01/2022 07/01/2022 11:28 AM CDT COVID-19 Rule Out 07/01/2022 07/01/2022 07/02/2022 9:05 PM CDT documented as of this encounter Care Teams Risk Management Director Relationship Specialty Start Date End Date Carlos Prater MD [address] [place] [address] PCP - General 04/29/14 documented as of this encounter
--- OUTSIDE RECORDS SUMMARY | 2025-01-18 20:17 | XMS_ITS | Encounter Summary ---
Author Organization [facility] Address [facility] [place] [address] Care Team Providers Care Medical Services Manager Name Role Phone Carlos Prater MD Primary Care Provider Reason for Referral * Consultation (Routine) - New Request Specialty Diagnoses / Procedures Referred By Kathy de leon Referred To Contact GASTROENTEROLOGY Diagnoses Screening for colon cancer Carlos Prater MD [address] [place] [address] Phone: tel: fax: [facility] [address], [address] [place] [phone] Phone: tel: fax: Referral ID Status Reason Start Date Expiration Date V isits Requested Visits Authorized [id number] New Request 01/17/2025 02/18/2026 1 1 Reason for Visit * Reason Onset Date Comments Referral 01/06/2025 Encounter Details Date Type Department Care Team (Late st Contact Info) Description 01/06/2025 Telephone [facility] Family & Internal Medicine [facility] [address] [place] [phone] Carlos Prater MD [address] [place], [place] [phone] (work) Referral Social History Tobacco Use Types Packs/Day Years Used Date Smoking Tobacco: Former Cigars Smokeless Tobacco: Never Comments:Occasional cigar Alcohol Use Standard Drinks/Week Comments [...] on file documented as of this encounter Progress Notes * Claribel Gamino MA - 01/17/2025 8:52 AM CDTAddended by: CLARIBEL GAMINO on: 01/17/2025 08:52 AM Modules accepted: Orders * Claribel Gamino MA - 01/17/2025 8:52 AM CDT New referral ordered. * Misti Rodgers - 01/17/2025 7:57 AM CDT Patient called in asking to have GI referral changed back to Dr. Montoya. Please advise. * Grace Ritter MA - 01/14/2025 11:58 AM CDTAddended by: GRACE RITTER on: 01/14/2025 11:58 AM Modules accepted: Orders * Grace Ritter MA - 01/14/2025 11:52 AM CDT Referral placed. Patient informed Grace Ritter MA * Carlos Prater MD - 01/13/2025 4:52 PM CDT We can refer to [facility] Ferreira at [facility]. * SINTIA Young - 01/09/2025 10:53 AM CDT Which facility would he like to be seen? There are no other GI docs within [facility] down here anyway. We may need to get Moi's recommendation upon his return * Bessy Gordillo - 01/06/2025 3:12 PM CDT Patient is wanting a referral to a gastrologist but he is not interested in seeing Dr. Montoya. Patientis find with anyone else that Dr. Prater recommends. documented in this encounter Plan of Treatment Scheduled Referrals Name Type Priority Associated Diagnoses Orde r Schedule Ambulatory referral to Gastroenterology ([facility]) Referral Routine Screening for colon cancer Ordered: 01/17/2025 documented as of this encounter Visit Diagnoses Diagnosis Screening for colon cancer- Primary Special screening for malignant neoplasms, colon documented in this encounter Additional Health Concerns Assessment Noted Time PHQ-9 Depression Total Score: 0 02/25/20 21 2:32 PM LITIGATION EXAMINER documented as of this encounter Care Teams Medical Services Manager Relationship Specialty Start Date End Date Carlos Prater MD [address] [place] [address] PCP - General 04/29/14 documented as of this encounter
[2025-01-18 20:27] VITALS: BP 139/90; PULSE 92; RESP 18; TEMP 36.5; O2SAT 100
[2025-01-19 00:10] VITALS: BP 153/82; PULSE 84; RESP 18; O2SAT 99
--- NOTE | 2025-01-19 01:02 | ED.FALL ---
HPI - Fall General Chief Complaint: Fall Stated Complaint: GLF, -LOC, + HS, - thinner Time Seen by Provider: 01/19/25 00:17 Source: patient Mode of arrival: ambulatory Limitations: no limitations History of Present Illness HPI Narrative: Patient is a 69-year-old male who presents the ED with report of a fall. Patient reports he lost his footing and tripped and fell outside. Caught himself mostly with his right arm, but did hit his head against some landscaping papers. Sustained small abrasions to his forehead and nose. Denied LOC. Does have some pain to his neck, R shoulder. Denies numbness/tingling. Denies dizziness, lightheadedness, vision changes, epistaxis, back pain. Denies chest pain, SOB. He is not on any anticoagulation. Tetanus UTD. Has Hx of previous brain tumor with brain surgery/plating. Related Data Home Medications ?Medication ?Instructions ?Recorded ?Confirmed ?Last Taken ?Type amlodipine 5 mg-benazepril 40 mg 1 cap PO DAILY 01/16/25 01/16/25 Unknown History capsule celecoxib 200 mg capsule 200 mg PO Q24H 01/16/25 01/16/25 Unknown History Allergies Allergy/AdvReac Type Severity Reaction Status Date / Time Penicillins Allergy Unknown Hives / Verified 01/16/25 13:40 Red Face Review of Systems Review of Systems: All systems reviewed & are unremarkable except as noted in HPI. All systems reviewed & are unremarkable except as noted in HPI and below PMFSH Past Medical History Medical History Healthy adult male Surgical History Surgical History H/O knee surgery Social History Social History Tobacco type: cigars Additional smoking assessment comments: [place] cig[place] occasion. Alcohol intake: current Drinks per week: 14 Substance use: never Living arrangements: with family Spiritual care concerns: No Exam Narrative: GENERAL: Well appearing, well-nourished, non-toxic, in no acute distress. HEAD: Normocephalic. Abrasions to R forehead, L superior periorbital region, bridge of nose w/o active bleeding EYES: PERRL/EOMI, conjunctiva clear, no nystagmus ENT: No active epistaxis. No septal hematoma NECK: Minimal paraspinal muscle tenderness. No significant midline spinal tenderness RESPIRATORY: Airway patent, respirations nonlabored. Clear to auscultation bilaterally, no rales, rhonchi, wheezing. CARDIOVASCULAR: Regular rate and rhythm without murmurs, rubs, or gallops. MUSCULOSKELETAL: Moves all extremities. No gross deformities. Minimal tenderness over R anterior shoulder. Full ROM of RUE. No midline T/L spinal tenderness. SKIN: Warm, dry, normal color. NEURO: A&O X3. Speech clear. Cranial nerves II-XII grossly intact. Steady gait. No ataxic movements. No focal deficits. PSYCHIATRIC: Appropriate mood and affect. Normal interaction. Course Vital Signs Vital signs: Vital Signs Temperature 97.7 F 01/18/25 20:27 Pulse Rate 92 01/18/25 20:27 Respiratory Rate 18 01/18/25 20:27 Blood Pressure 139/90 01/18/25 20:27 Pulse Oximetry 100 01/18/25 20:27 Oxygen Delivery Room Air 01/18/25 20:27 Temperature 97.7 F 01/18/25 20:27 Pulse Rate 84 01/19/25 00:10 Respiratory Rate 18 01/19/25 00:10 Blood Pressure 153/82 H 01/19/25 00:10 Pulse Oximetry 99 01/19/25 00:10 Oxygen Delivery Room Air 01/18/25 20:27 MDM - Fall MDM Narrative Medical decision making narrative: Patient presented to ED status post ground level mechanical fall, head injury with several small abrasions to face. Also reporting discomfort to right shoulder. Vital signs are stable upon arrival. Patient is neurologically intact. No focal deficits. No concerning findings on exam. Tetanus is up-to-date. Abrasions are very superficial, do not require repair. CT brain, cervical spine, facial bones without traumatic findings. No facial bone fracture. X-ray of right shoulder also negative for fracture. Discussed imaging findings with patient. He did not want anything for pain currently in the ED. Offered sling for comfort/support, however patient politely declined. Discussed continued pain control at home, recommended follow-up with PCP for further evaluation as needed. Patient given return precautions. He is in agreement with plan, feels comfortable going home. Discharged in stable condition. Medical Records Attestation: I reviewed the patient's medical records. Imaging Data Attestation: I personally reviewed and interpreted this imaging study as follows: Radiologist's impression: STAT RAD CT brain: Impression: No acute intracranial abnormality. Right frontal cranioplasty and encephalomalacia. No incidental findings. STAT RAD CT facial bones: Impression: No facial fracture. No incidental findings. STAT RAD CT C-spine: Impression: No fracture or malalignment. No incidental findings. STAT RAD XR R shoulder: Impression: No evidence of acute fracture or dislocation. Severe right glenohumeral arthrosis. Discharge Plan Discharge Clinical Impression: Fall from ground level Closed head injury Qualifiers: Encounter type: initial encounter Qualified Code(s): S09.90XA - Unspecified injury of head, initial encounter Right shoulder strain Qualifiers: Encounter type: initial encounter Qualified Code(s): S46.911A - Strain of unspecified muscle, fascia and tendon at shoulder and upper arm level, right arm, initial encounter Abrasion of face Qualifiers: Encounter type: initial encounter Qualified Code(s): S00.81XA - Abrasion of other part of head, initial encounter Patient Disposition: Home Condition: Stable Instructions: Antibiotic Form, Head Injury (ED), Abrasion (ED) Additional Instructions: Your imaging here did not show any traumatic findings. Recommend Tylenol, Celebrex as needed for pain. Recommend ice to areas of pain. Continue to bandage and use antibiotic ointment to abrasions over face. Follow-up with your primary care doctor for further evaluation if needed. Return to the ED if you experience recurrent fall or injury, severe pain, severe dizziness, passing out, vision changes, unable to keep down food or drink, numbness or weakness of arm or leg, or any other symptoms of concern. Patient Language: Macedonian Prescriptions: No Action celecoxib 200 mg capsule 200 mg PO Q24H Patient Comments: takes once per day amlodipine-benazepril 5-40 mg capsule 1 cap PO DAILY Follow-up/Referrals: Moi,Carlos Rodriguez MD [Primary Care Provider] Time of Disposition: 01:06
== END 2025-01-19 01:26 | disposition home or self-care (01) ==
PROVIDERS: Emergency Provider Physician Assistant; PCP Internal Medicine
DX: S00.81XA Abrasion of other part of head, initial encounter (principal); S00.212A Abrasion of left eyelid and periocular area, initial encounter; S00.31XA Abrasion of nose, initial encounter; S46.911A Strain of unspecified muscle, fascia and tendon at shoulder and upper arm level, right arm, initial encounter; F17.290 Nicotine dependence, other tobacco product, uncomplicated; W01.198A Fall on same level from slipping, tripping and stumbling with subsequent striking against other object, initial encounter
CPT/HCPCS: 70450; 70486; 72125; 73030; 99284

== ENCOUNTER 2025-04-01 09:21 | Outpatient (CLI) | payer MEDICARE, SELFPAY ==
--- NOTE | ~2025-04-01 | US_ITS ---
EXAMINATION: US abdomen complete, 04/01/2025 9:23 [place] HISTORY: Epigastric pain COMPARISON: None Technique: Brown-scale and color Doppler images were obtained. Findings: LIVER: Moderate increased echogenicity of the liver. . GALLBLADDER/BILIARY: Unremarkable.No cholelithiais, wall thickening or pericholecystic fluid. No biliary dilatation. CBD 3 mm. [place] sign negative. PANCREAS: Unremarkable. SPLEEN: Unremarkable, no splenomegaly. KIDNEYS: Right Kidney: Right kidney 11.4 x 4.8 x 5.5 cm, normal. Left Kidney: Left kidney 11.4 x 5.9 x 6.1 cm, normal. AORTA: Normal caliber aorta. IVC: Unremarkable. FREE FLUID: None. Impression: 1. Moderate hepatic steatosis Reviewed, dictated and finalized at location P. DYER Impression: 1. Moderate hepatic steatosis
== END 2025-04-01 09:22 | disposition home or self-care (01) ==
LOC: MICIMG 09:22
PROVIDERS: PCP Internal Medicine; Visit Provider Internal Medicine
DX: R10.13 Epigastric pain (principal); R19.4 Change in bowel habit; K76.0 Fatty (change of) liver, not elsewhere classified
CPT/HCPCS: 76700